=== PATIENT | female | born 1990 | race American Indian/Alaskan Native ===

== ENCOUNTER 2017-08-26 15:27 | Emergency (ER) | payer OTHER ==
[2017-08-26 15:53] VITALS: BP 104/73
[2017-08-26 16:46] LABS: Basophils % (Auto) 0.4 % (0.0-1.8); Eosinophils % (Auto) 0.8 % (0.0-4.3); Hematocrit 37.4 % (30.3-42.9); Mean Corpuscular HGB Conc 35 % (30-34); Mean Corpuscular Hemoglobin 31 pg (28-32); Mean Corpuscular Volume 90 fl (79-97); Platelet Count 431 K/mm3 (140-440); Red Blood Count 4.16 M/mm3 (3.65-5.03); Red Cell Distribution Width 13.9 % (13.2-15.2); White Blood Count 9.7 K/mm3 (4.5-11.0)
[2017-08-26] MEDS ORDERED: MOTRIN PO ONE (17:52)
--- NOTE | 2017-08-26 17:55 | Emergency Department Report ---
Chief Complaint: Vaginal Bleeding Stated Complaint: VAGINAL BLEEDING POSS MISCARR Time Seen by Provider: 08/26/17 17:48 - HPI History of Present Illness: PT c/o vaginal bleeding and pelvic pain. PT states she has not had a period since 06-11-17. PT states that she took two home tests. PT states 1 was negative and 1 was positive. - ROS Review of Systems: + abd pain + vaginal bleeding + nausea - Exam Vital Signs: Vital Signs 08/26/17 15:45 Temperature 98 F Pulse Rate 67 Respiratory 20 Rate Blood Pressure 104/73 O2 Sat by Pulse 99 Oximetry Physical Exam: PT looks well, non toxic. abd soft and non tender at this time. MSE screening note: Focused history and physical exam performed. Due to findings the following was ordered: ED Medical Decision Making - Lab Data Result diagrams: 08/26/17 16:10 ED Disposition for MSE Condition: Stable Referrals: PRIMARY CARE, [Primary Care Provider] - 3-5 Days
--- NOTE | 2017-08-26 19:53 | Ultrasound Report ---
FINAL REPORT EXAM: US PELVIC COMPLETE HISTORY: pelvic pain, irregular cycle, neg hcg TECHNIQUE: Transabdominal and transvaginal sonography of the pelvis. PRIORS: None. FINDINGS: The uterus measures 7.1 x 3.7 x 3.7 cm and appears grossly unremarkable. The endometrial stripe is within normal limits and measures 5-10 mm in AP dimension. The right ovary measures 3.3 x 2.4 x 3.2 cm and is grossly unremarkable. The left ovary measures 4.1 x 1.5 x 2.6 cm and is grossly unremarkable. Color Doppler shows appropriate blood flow present in the ovaries bilaterally. No adnexal masses or significant free peritoneal fluid. IMPRESSION: 1. No acute findings.
--- NOTE | 2017-08-26 19:53 | Ultrasound Report ---
FINAL REPORT EXAM: US TRANSVAGINAL HISTORY: pelvic pain TECHNIQUE: Transabdominal and transvaginal sonography of the pelvis. PRIORS: None. FINDINGS: The uterus measures 7.1 x 3.7 x 3.7 cm and appears grossly unremarkable. The endometrial stripe is within normal limits and measures 5-10 mm in AP dimension. The right ovary measures 3.3 x 2.4 x 3.2 cm and is grossly unremarkable. The left ovary measures 4.1 x 1.5 x 2.6 cm and is grossly unremarkable. Color Doppler shows appropriate blood flow present in the ovaries bilaterally. No adnexal masses or significant free peritoneal fluid. IMPRESSION: 1. No acute findings.
--- NOTE | 2017-08-26 20:30 | Emergency Department Report ---
ED Female HPI - General Chief complaint: Vaginal Bleeding Stated complaint: VAGINAL BLEEDING POSS MISCARR Time Seen by Provider: 08/26/17 17:48 Source: patient Mode of arrival: Ambulatory Limitations: No Limitations - History of Present Illness Initial comments: Patient is a 27-year-old female who presents due to pelvic cramping and vaginal bleeding that started this morning. Patient denies any fever or chills. Patient denies any nausea, vomiting or diarrhea. Patient states that she has used 1 pad today, she states that her last menstrual period was in May. Patient denies any vaginal discharge, dysuria or frequency. MD Complaint: vaginal bleeding, pelvic pain -: This morning Location: other (pelvic pain) Radiation: non-radiating Severity: moderate Quality: cramping Consistency: intermittent Improves with: medication Worsens with: none Are you Now?: No Last Menstrual Period: 06/11/17 EDC: 03/18/18 Associated Symptoms: denies other symptoms - Related Data Sexually active: Yes : 0 Previous Rx's Medication Instructions Recorded Last Taken Type Ibuprofen 800 mg PO Q8HR PRN #30 tablet 08/26/17 Unknown Rx Allergies Allergy/AdvReac Type Severity Reaction Status Date / Time No Known Allergies Allergy Unverified 08/26/17 15:45 ED Review of Systems ROS: Stated complaint: VAGINAL BLEEDING POSS MISCARR Other details as noted in HPI Comment: All other systems reviewed and negative Constitutional: no symptoms reported. denies: chills, diaphoresis, fever, malaise, weakness Respiratory: no symptoms reported Gastrointestinal: abdominal pain (pelvic cramping). denies: nausea, vomiting, diarrhea, constipation, melena, hematochezia Genitourinary: abnormal menses. denies: urgency, dysuria, frequency, hematuria , discharge, dyspareunia Musculoskeletal: denies: back pain, joint swelling, arthralgia Skin: denies: rash Neurological: denies: headache ED Past Medical Hx - Past Medical History Previous Medical History?: No - Surgical History Past Surgical History?: No - Social History Smoking Status: Former Smoker Substance Use Type: None - Medications Home Medications: Home Medications Medication Instructions Recorded Confirmed Last Taken Type Ibuprofen 800 mg PO Q8HR PRN #30 tablet 08/26/17 Unknown Rx ED Physical Exam - General Limitations: No Limitations General appearance: alert, in no apparent distress - Head Head exam: Present: atraumatic, normocephalic, normal inspection - Eye Eye exam: Present: normal appearance, PERRL, EOMI - GI/Abdominal GI/Abdominal exam: Present: soft, tenderness (mild peliv tenderness). Absent: distended, guarding, rebound, rigid, normal bowel sounds - External exam: Present: normal external exam. Absent: erythema, swelling, lesions, lacerations, ecchymosis, bleeding Speculum exam: Present: vaginal bleeding. Absent: erythema, vaginal discharge, cervical discharge, foreign body, tissue, laceration - Extremities Exam Extremities exam: Present: normal inspection, full ROM, normal capillary refill. Absent: tenderness - Back Exam Back exam: Present: normal inspection, full ROM - Neurological Exam Neurological exam: Present: alert, oriented X3 - Psychiatric Psychiatric exam: Present: normal affect, normal mood - Skin Skin exam: Present: warm, dry, intact ED Course Vital Signs 08/26/17 15:45 Temperature 98 F Pulse Rate 67 Respiratory 20 Rate Blood Pressure 104/73 O2 Sat by Pulse 99 Oximetry ED Medical Decision Making - Lab Data Result diagrams: 08/26/17 16:10 Lab Results 08/26/17 08/26/17 08/26/17 Range/Units 16:10 16:10 16:15 WBC 9.7 (4.5-11.0) K/mm3 RBC 4.16 (3.65-5.03) M/mm3 Hgb 13.0 (10.1-14.3) gm/dl Hct 37.4 (30.3-42.9) % MCV 90 (79-97) fl MCH 31 (28-32) pg MCHC 35 H (30-34) % RDW 13.9 (13.2-15.2) % Plt Count 431 (140-440) K/mm3 Lymph % (Auto) 25.8 (13.4-35.0) % [place] % (Auto) 5.9 (0.0-7.3) % Eos % (Auto) 0.8 (0.0-4.3) % Baso % (Auto) 0.4 (0.0-1.8) % Lymph # 2.5 (1.2-5.4) K/mm3 [place] # 0.6 (0.0-0.8) K/mm3 Eos # 0.1 (0.0-0.4) K/mm3 Baso # 0.0 (0.0-0.1) K/mm3 Seg Neutrophils % 67.1 (40.0-70.0) % Seg Neutrophils # 6.5 (1.8-7.7) K/mm3 HCG, Quant < 2 (0-4) mIU/mL Blood Type A POSITIVE Antibody Screen TNR [place] Antibody Screen Negative - Radiology Data Radiology results: report reviewed Ultrasound transabdominal and transvaginal was unremarkable. - Medical Decision Making Patient was in no acute distress, patient had moderate blood in the vaginal canal. The blood was evacuated from the vaginal canal and patient had small bleeding from the cervical os. Cervix was closed. Patient stated that her pain was improved after she was given ibuprofen. Patient was given a prescription for ibuprofen and she was told to follow-up with an [facility]. - Differential Diagnosis menorrhagia, ovarian cyst, dysfunctional uterine bleeding Critical care attestation.: If time is entered above; I have spent that time in minutes in the direct care of this critically ill patient, excluding procedure time. ED Disposition Clinical Impression: Menorrhagia with irregular cycle Disposition: DC- TO HOME OR SELFCARE Is pt being admited?: No Does the pt Need Aspirin: No Condition: Good Instructions: Menorrhagia (ED) Additional Instructions: Take ibuprofen 800 mg every 8 hours as needed for pain. Follow-up with provided [facility] for follow-up visit. Prescriptions: Ibuprofen 800 mg PO Q8HR PRN #30 tablet PRN Reason: Pain Referrals: PRIMARY CAREMD [Primary Care Provider] - 3-5 Days CLARITA KEMP MD [Staff Physician] - 3-5 Days Forms: Work/School Release Form(ED) Time of Disposition: 20:26
[2017-08-26 21:12] LABS: Bacteria,Urine 1+ /HPF (Negative); Bilirubin,Urine NEG (Negative); Blood,Urine MOD (Negative); Ketones,Urine NEG (Negative); Leukocyte Esterase,Urine MOD (Negative); Mucus,Urine FEW /HPF; Nitrite,Urine NEG (Negative); Protein,Urine <15 mg/dL mg/dL (Negative)
== END 2017-08-26 20:35 | disposition home or self-care (01) ==
LOC: EDBD → ED 15:27
DX: N92.0 Excessive and frequent menstruation with regular cycle (principal); Z87.891 Personal history of nicotine dependence
CPT/HCPCS: 36415; 76830; 76856; 81001; 84702; 85025; 86850; 86900; 86901